=== PATIENT | male | born 1950 | race Caucasian/White ===

== ENCOUNTER → 2022-07-24 11:50 | Outpatient (CLI) | payer MEDICARE, SELFPAY ==
--- NOTE | 2022-07-24 | DI.MRI.S_ITS ---
PROCEDURE: MR LUMBAR SPINE WO CON INDICATIONS: Radiculopathy, lumbar region TECHNIQUE: Noncontrast sagittal T1 spin echo and T2 fast echo, sagittal STIR, and T2 fast spin echo through the lumbar spine. In cases with scoliosis, additional coronal T2 fast spin echo may be performed. COMPARISON: None. FINDINGS: Image quality: Excellent. Alignment and Curvature: Mild scoliotic curvature, with convexity to the right, centered at L1-L2. Trace anterolisthesis that L2 on L3. Bone Marrow: Marrow is of normal overall signal. No acute vertebral body compression fractures. If Spinal Cord: Conus medullaris terminates at the L1-L2 level. Visualized cord demonstrates normal signal and size. Paraspinous Soft Tissues: No paravertebral masses. T12-L1: Mild facet hypertrophy. Mild disc bulge. No canal stenosis or foraminal stenosis. L1-L2: Disc bulge. Mild facet hypertrophy. No canal stenosis or foraminal stenosis. L2-L3: Trace anterolisthesis of L2 on L3. Diffuse disc bulge. Facet and ligament hypertrophy. Epidural lipomatosis. Moderate canal stenosis. Mild right foraminal narrowing and mild to moderate left foraminal narrowing. L3-L4: Broad-based right posterior lateral disc protrusion superimposed on diffuse disc bulge. Facet hypertrophy. Prominent epidural lipomatosis. There is moderate to severe central canal stenosis, severe right lateral recess stenosis, and mild bilateral foraminal narrowing. L4-L5: Disc bulge. Facet hypertrophy. No significant central canal stenosis. [id number] right foraminal narrowing. Mild left foraminal narrowing. L5-S1: Disc bulge. Facet hypertrophy. No canal stenosis. [id number] left foraminal narrowing. IMPRESSION: 1. There is underlying osteoporosis with numerous mild old compression fractures noted. 2. Epidural lipomatosis contributes to multilevel canal stenosis. 3. Canal stenosis is moderate at L2-L3 and moderate to severe at L3-L4. 4. Multilevel foraminal narrowing as described above. Dictated by: Brayan Arguelles M.D. on 07/24/2022 at 16:32 Approved by: Brayan Arguelles M.D. on 07/24/2022 at 16:38
== END ==
PROVIDERS: PCP Student in an Organized Health Care Education/Training Program; Referring Provider Orthopaedic Surgery; Visit Provider Orthopaedic Surgery
DX: M54.16 Radiculopathy, lumbar region (principal); M48.061 Spinal stenosis, lumbar region without neurogenic claudication; M81.0 Age-related osteoporosis without current pathological fracture; M48.50XS Collapsed vertebra, not elsewhere classified, site unspecified, sequela of fracture
CPT/HCPCS: 72148